=== PATIENT | male | born 1945 | race Caucasian/White ===

== ENCOUNTER 2020-05-23 21:41 | Inpatient (IN) | payer BC, OTHER ==
[~2020-05-23] VITALS: Ht 157.5 cm; Wt 78.9 kg
[2020-05-23] MEDS ORDERED: BLOOD SUGAR DIAGNOSTIC 1 EACH STRIP IN ONE (22:30)
[2020-05-23] MEDS ORDERED: MAG HYDROX/AL HYDROX/SIMETH 30 ML UDC PO PRN (22:30)
[2020-05-23] MEDS ORDERED: MAGNESIUM HYDROXIDE 30 ML UDC PO PRN (22:30)
[2020-05-23] MEDS ORDERED: RISP3TAB5 PO (23:13)
[2020-05-23] MEDS ORDERED: ASPI-1169 PO (23:13)
[2020-05-23] MEDS ORDERED: DIVA500T4 PO (23:13)
[2020-05-23] MEDS ORDERED: TAMS-12 PO (23:13)
[2020-05-23] MEDS ORDERED: ATOR40TA PO (23:13)
[2020-05-23] MEDS ORDERED: ALLO100T PO (23:13)
[2020-05-23] MEDS ORDERED: AMLO-213 PO (23:13)
[2020-05-23 23:18] VITALS: BP 145/68
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
[2020-05-24 08:00] VITALS: BP 131/75
[2020-05-24] MEDS ORDERED: PNEUMOCOCCAL 23-VAL P-SAC VAC 0.5 ML VIAL SQ ONE (08:00)
[2020-05-24 08:12] LABS: ALANINE AMINOTRANSFERASE 29 U/L (12-78); ALBUMIN 3.3 g/dL (3.4-5.0); ALKALINE PHOSPHATASE 55 U/L (46-116); ASPARTATE AMINOTRANSFERASE 23 U/L (15-37); BILIRUBIN,TOTAL 0.2 mg/dL (0.2-1.0); CALCIUM, SERUM 8.8 mg/dL (8.5-10.1); CARBON DIOXIDE 24 mmol/L (21-32); CHLORIDE 106 mmol/L (98-107); CHOLESTEROL 169 mg/dL (<200); CREATININE 1.9 mg/dL (0.6-1.3); GLUCOSE 104 mg/dL (74-106); HDL CHOLESTEROL 51 mg/dL (40-60); LDL 95 mg/dL (0-99); POTASSIUM 4.6 mmol/L (3.5-5.1); SODIUM SERUM 142 mmol/L (136-145); TOTAL PROTEIN, SERUM 7.2 g/dL (6.4-8.2); TRIGLYCERIDES 97 mg/dL (30-150); UREA NITROGEN, BLOOD 36 mg/dL (7-18)
[2020-05-24] MEDS: AMLODIPINE BESYLATE 10 MG TABLET PO SCH (08:38)
[2020-05-24] MEDS: ALLOPURINOL 100 MG TABLET PO SCH (08:38)
[2020-05-24] MEDS: ASPIRIN 81 MG TAB.CHEW PO SCH (08:38)
--- NOTE | 2020-05-24 09:00 | NUR ---
RN NOTE- PT ALERT ORIENTED TO PERSON PLACE TIME PURPOSE, DENIES ALL MED COMPLIANT INTERACTIVE PO INTAKE GOOD
[2020-05-24] MEDS ORDERED: LORAZEPAM 0.5 MG TABLET PO PRN (11:00)
[2020-05-24] MEDS ORDERED: TEMAZEPAM 7.5 MG CAPSULE PO PRN (11:00)
--- NOTE | 2020-05-24 11:10 | NUR ---
CLARE Family Contact: CLARE spoke with patient's , Angie ([phone]) and discussed treatment and discharge plan. Angie stated she will pick up attendant the patient at the time of discharge and take him back home.
--- NOTE | 2020-05-24 11:21 | NUR ---
CLARE Initial Discharge Plan: Patient currently resides at [place] [address] [place] [address] with his Angie ([phone]). Patient would like to return home upon discharge. Patient's , Angie would also like patient to return home. CLARE will continue to work with patient, family, and MD to ensure a safe and proper discharge plan.
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
--- NOTE | 2020-05-24 13:46 | NUR ---
SW Family Contact: Patient's , Angie ([phone]) faxed this foster care social worker the DPOA documents and a copy has been placed in the patient's chart.
--- NOTE | 2020-05-24 14:36 | NUR ---
UR NOTE: AUTHORIZATION# [id number] OBTAINED FROM JAYLEN WITH [facility] @ [phone]. 2 DAYS APPROVED. PLEASE FAX CLINICAL TO FAX# [phone] FOR MORE DAYS WITHIN 24 TO 48 HOURS. CALL REF# [id number]
[2020-05-24 16:00] VITALS: BP 151/77
[2020-05-24] MEDS: ATORVASTATIN 40 MG TABLET PO SCH (17:31)
[2020-05-24] MEDS: TAMSULOSIN 0.4 MG CAP.SR.24H PO SCH (17:31)
[2020-05-24 21:21] VITALS: BP 102/75
[2020-05-24] MEDS: risperiDONE 1 MG TABLET PO SCH (22:19)
[2020-05-24] MEDS: DIVALPROEX SODIUM 500 MG TABLET.DR PO SCH (22:19)
[2020-05-25 07:44] LABS: BASOPHILS # (AUTO) 0.1 /CMM (0.0-0.2); BASOPHILS % (AUTO) 1.3 % (0.0-2.0); EOSINOPHILS % (AUTO) 16.7 % (0.0-6.0); HEMATOCRIT 23 % (39-51); HEMOGLOBIN 7.9 g/dL (13.5-17.5); LYMPHOCYTES # (AUTO) 0.8 /CMM (0.8-4.8); LYMPHOCYTES % (AUTO) 17.3 % (20.0-44.0); MEAN CORPUSCULAR HGB CONC 34 g/dl (31.0-36.0); MEAN CORPUSCULAR VOLUME 98 fL (80-96); MONOCYTES # (AUTO) 0.6 /CMM (0.1-1.30); MONOCYTES % (AUTO) 12.2 % (2.0-12.0); NEUTROPHILS # (AUTO) 2.4 /CMM (1.8-8.9); NEUTROPHILS % (AUTO) 52.5 % (43.0-81.0); PLATELET COUNT (AUTO) 232 /CMM (150-450); RED BLOOD CELL COUNT(AUTO) 2.39 MIL/uL (4.5-6.0); WHITE BLOOD COUNT (AUTO) 4.6 K/uL (4.3-11.0)
[2020-05-25 08:00] VITALS: BP 141/81
[2020-05-25 08:06] LABS: MAGNESIUM 2.1 mg/dL (1.8-2.4); PHOSPHORUS 3.6 mg/dL (2.5-4.9)
[2020-05-25] MEDS: ASPIRIN 81 MG TAB.CHEW PO SCH (08:27)
[2020-05-25] MEDS: ALLOPURINOL 100 MG TABLET PO SCH (08:28)
[2020-05-25] MEDS: AMLODIPINE BESYLATE 10 MG TABLET PO SCH (08:28)
--- NOTE | 2020-05-25 11:33 | NUR ---
UR NOTE: This SW contacted Vijay with [employer] [facility] at ([phone]) and faxed clinical to ([phone]) for clinical review.
--- NOTE | 2020-05-25 13:21 | NUR ---
UR NOTE: This SW contacted Vijay with [employer] [facility] at ([phone]) and faxed clinical to ([phone]) stated patient is authorized until 05/27/20 and will require clinical review on 05/27/20. Auth #[id number]
--- NOTE | 2020-05-25 13:23 | NUR ---
UR NOTE: Vijay with [facility] at ([phone]) and faxed clinical to ([phone]) contacted this global technical writer requesting medicare letter from Intake and if Intake can fax it to him. This global technical writer notified Jd from Intake. Auth #[id number]
--- NOTE | 2020-05-25 15:09 | NUR ---
Medicare Rights Letter: This radio news writer had pt sign Medicare Rights letter and placed it in patient's chart. This radio news writer also faxed it to Jd Intake and insurance correctional case records supervisor Vijay ([phone]) ([phone]).
--- NOTE | 2020-05-25 15:09 | NUR ---
UR NOTE: Vijay with [employer] [facility] at ([phone]) and faxed clinical to ([phone]) and faxed patient's Medicare Rights Letter. Auth #[id number]
--- NOTE | 2020-05-25 15:27 | NUR ---
[facility] Boom Supervisor: This law writer received a phone call from [place]av[place] child support case officer from [facility] who follows pt ([phone]) and would want to know when pt will be discharged.
[2020-05-25 16:00] VITALS: BP 146/69
[2020-05-25] MEDS: TAMSULOSIN 0.4 MG CAP.SR.24H PO SCH (17:19)
[2020-05-25] MEDS: ATORVASTATIN 40 MG TABLET PO SCH (17:19)
--- NOTE | 2020-05-25 19:30 | NUR ---
GPS RN NOTE, RECEIVED PATIENT AWAKE AND IN BED, NO S/S OR COMPLAINTS OF PAIN AT THIS TIME. PATIENT IS DISPLAYING NO S/S OF APPARENT DISTRESS AT THIS TIME. PATIENT BREATHING IS UNLABORED WITH EQUAL RISE AND FALL OF THE CHEST. PATIENT IS ALERT AND ORIENTED X 3 ON ROOM AIR WITH A SPO2 96%. PATIENT IS COMPLIANT WITH MEDICATIONS, HYPERVERBAL, ANXIOUS AT TIMES, AND COOPERATIVE. PATIENT DENIES SUICIDAL AND HOMICIDAL IDEATIONS AT THIS TIME. PATIENT ASSISTED WITH TURNING AND REPOSITIONING Q2HR AND PRN FOR COMFORT AND CIRCULATION. PATIENT HAS NO NEEDS AT THIS TIME. PATIENT EDUCATED ON THE USE OF THE CALL ORTIZ. PATIENT BED SIDE RAILS UP X 2 FOR SAFETY. PATIENT BED IS LOCKED, LOW, WITH BED ALARM ON. WILL CONTINUE TO MONITOR THIS PATIENT Q15 MINUTES WITH THE HELP OF STAFF TO MAINTAIN SAFETY.
[2020-05-25 19:52] VITALS: BP 147/79
[2020-05-25] MEDS: risperiDONE 1 MG TABLET PO SCH (21:32)
[2020-05-25] MEDS: DIVALPROEX SODIUM 500 MG TABLET.DR PO SCH (21:32)
[2020-05-26 08:00] VITALS: BP 155/68
[2020-05-26 08:07] LABS: PTH, INTACT 23 pg/mL (15-65)
[2020-05-26 08:15] LABS: BASOPHILS % (AUTO) 0.8 % (0.0-2.0); EOSINOPHILS % (AUTO) 13.2 % (0.0-6.0); HEMATOCRIT 25 % (39-51); HEMOGLOBIN 8.6 g/dL (13.5-17.5); LYMPHOCYTES # (AUTO) 0.8 /CMM (0.8-4.8); LYMPHOCYTES % (AUTO) 13.3 % (20.0-44.0); MEAN CORPUSCULAR HGB CONC 34 g/dl (31.0-36.0); MEAN CORPUSCULAR VOLUME 98 fL (80-96); MONOCYTES # (AUTO) 0.6 /CMM (0.1-1.30); MONOCYTES % (AUTO) 10.2 % (2.0-12.0); NEUTROPHILS # (AUTO) 3.5 /CMM (1.8-8.9); NEUTROPHILS % (AUTO) 62.5 % (43.0-81.0); PLATELET COUNT (AUTO) 257 /CMM (150-450); RED BLOOD CELL COUNT(AUTO) 2.59 MIL/uL (4.5-6.0); WHITE BLOOD COUNT (AUTO) 5.6 K/uL (4.3-11.0)
[2020-05-26] MEDS: AMLODIPINE BESYLATE 10 MG TABLET PO SCH (08:18)
[2020-05-26] MEDS: ALLOPURINOL 100 MG TABLET PO SCH (08:18)
[2020-05-26] MEDS: ASPIRIN 81 MG TAB.CHEW PO SCH (08:18)
[2020-05-26] MEDS: DIVALPROEX SODIUM 500 MG TABLET.DR PO SCH ×2 (08:37→17:09)
[2020-05-26 08:43] LABS: ALANINE AMINOTRANSFERASE 26 U/L (12-78); ALBUMIN 3.1 g/dL (3.4-5.0); ALKALINE PHOSPHATASE 52 U/L (46-116); ASPARTATE AMINOTRANSFERASE 23 U/L (15-37); BILIRUBIN,TOTAL 0.3 mg/dL (0.2-1.0); CALCIUM, SERUM 8.6 mg/dL (8.5-10.1); CARBON DIOXIDE 24 mmol/L (21-32); CHLORIDE 105 mmol/L (98-107); CREATININE 1.8 mg/dL (0.6-1.3); GLUCOSE 113 mg/dL (74-106); MAGNESIUM 2.1 mg/dL (1.8-2.4); PHOSPHORUS 3.6 mg/dL (2.5-4.9); POTASSIUM 4.8 mmol/L (3.5-5.1); SODIUM SERUM 140 mmol/L (136-145); TOTAL PROTEIN, SERUM 6.7 g/dL (6.4-8.2); UREA NITROGEN, BLOOD 39 mg/dL (7-18)
[2020-05-26 08:46] LABS: IRON, SERUM 59 ug/dl (50-175); TOTAL IRON BINDING CAPACITY 256 ug/dl (250-450)
[2020-05-26 10:05] LABS: CREATINE KINASE, TOTAL 354 U/L (39-308); FERRITIN 377 ng/mL (8-388)
--- NOTE | 2020-05-26 13:33 | NUR ---
SW Coordination of Care: This SW contacted primary doctors office Dr. Eric Jackson [address], [place] [address] ([phone]) on June 07 at 11:30AM. Eddie scheduled apt.
--- NOTE | 2020-05-26 15:07 | NUR ---
RN-CO: ENCOURAGE FLUID INTAKE TO PATIENT. TRIED TO COLLECT STOOL SPECIMEN BUT PT SAID NO URGE TO DEFECATE YET. SPECIMEN BOTTLE, HAT PROVIDED.
[2020-05-26 15:11] LABS: *SPE ALBUMIN 2.7 g/dL (2.9-4.4); *SPE ALPHA-1-GLOBULIN 0.2 g/dL (0.0-0.4); *SPE ALPHA-2-GLOBULIN 0.7 g/dL (0.4-1.0); *SPE BETA GLOBULIN 0.9 g/dL (0.7-1.3); *SPE GLOBULIN, TOTAL 2.8 g/dL (2.2-3.9); *SPE M-SPIKE Not Observed g/dL (Not Observed); *SPEGAMMA GLOBULIN 0.9 g/dL (0.4-1.8)
[2020-05-26 16:00] VITALS: BP 119/57
[2020-05-26] MEDS: ATORVASTATIN 40 MG TABLET PO SCH (17:09)
[2020-05-26] MEDS: TAMSULOSIN 0.4 MG CAP.SR.24H PO SCH (17:09)
[2020-05-26 19:53] VITALS: BP 140/59
[2020-05-26] MEDS: risperiDONE 1 MG TABLET PO SCH (21:09)
--- NOTE | 2020-05-27 03:09 | NUR ---
GPS RN NOTE, PATIENT HAS A COMPLAINT OF CONSTIPATION AND IS REQUESTING MILK OF MAGNESIA AT THIS TIME. PATIENT VITAL SIGNS ARE STABLE. GAVE MILK OF MAGNESIA 30ML 1 UNIT DOSE Q12HR PRN ORDERED. WILL REASSESS FOR CONSTIPATION AND I WILL CONTINUE TO MONITOR THIS PATIENT.
[2020-05-27 07:40] VITALS: BP 132/71
[2020-05-27 08:00] LABS: CREATININE, URINE 39.2 MG/DL (30.0-125.0); URINE TOTAL PROTEIN 55.1 mg/dL (0-11.9)
[2020-05-27] MEDS: AMLODIPINE BESYLATE 10 MG TABLET PO SCH (08:01)
[2020-05-27] MEDS: ALLOPURINOL 100 MG TABLET PO SCH (08:01)
[2020-05-27] MEDS: DIVALPROEX SODIUM 500 MG TABLET.DR PO SCH ×2 (08:01→17:33)
[2020-05-27] MEDS: ASPIRIN 81 MG TAB.CHEW PO SCH (08:01)
[2020-05-27 08:06] LABS: CREATININE KINASE (CK),MB 3.7 ng/mL (0.0-10.4)
[2020-05-27 08:20] LABS: BILIRUBIN,URINE NEGATIVE (NEGATIVE); BLOOD, URINE NEGATIVE Ery/uL (NEGATIVE); COLOR,URINE YELLOW (YELLOW); LEUKOCYTE ESTERASE ,URINE NEGATIVE (NEGATIVE); NITRITE, URINE NEGATIVE (NEGATIVE); PROTEIN,URINE 30 mg/dl (NEGATIVE); UGLUCOSE NEGATIVE (NEGATIVE); UROBILINOGEN,URINE 0.2 EU/dL (0.2)
--- NOTE | 2020-05-27 08:37 | NUR ---
UR NOTE: Vijay Sandra [facility] at ([phone]) and faxed clinical to ([phone]) sent clinical review and requested more days.
[2020-05-27 08:46] LABS: BACTERIA,URINE Rare /HPF (None Seen); RBC,URINE 0-2 /HPF (0-2); SQUAMOUS EPITHELIAL CELL,UR None Seen /HPF (None Seen); WBC,URINE 0-2 /HPF (0-3)
[2020-05-27 09:11] LABS: PTH, INTACT 45 pg/mL (15-65)
[2020-05-27 10:14] LABS: OCCULT BLOOD STOOL NEGATIVE (NEGATIVE)
--- NOTE | 2020-05-27 10:44 | NUR ---
UR NOTE: Vijay with [employer] [facility] at ([phone]) and faxed clinical to ([phone]) will require to fax clinicals on 05/30/2020.
[2020-05-27 12:06] LABS: EOSINOPHIL,URINE None Seen
[2020-05-27 16:07] VITALS: BP 143/72
[2020-05-27] MEDS: ATORVASTATIN 40 MG TABLET PO SCH (17:33)
[2020-05-27] MEDS: TAMSULOSIN 0.4 MG CAP.SR.24H PO SCH (17:33)
--- NOTE | 2020-05-27 19:30 | NUR ---
GPS RN NOTE, RECEIVED PATIENT AWAKE AND IN BED, NO S/S OR COMPLAINTS OF PAIN AT THIS TIME. PATIENT IS DISPLAYING NO S/S OF APPARENT DISTRESS AT THIS TIME. PATIENT BREATHING IS UNLABORED WITH EQUAL RISE AND FALL OF THE CHEST. PATIENT IS ALERT AND ORIENTED X 3 ON ROOM AIR WITH A SPO2 98%. PATIENT IS COMPLIANT WITH MEDICATIONS, HYPERVERBAL, ANXIOUS AT TIMES, AND COOPERATIVE. PATIENT DENIES SUICIDAL AND HOMICIDAL IDEATIONS AT THIS TIME. PATIENT ASSISTED WITH TURNING AND REPOSITIONING Q2HR AND PRN FOR COMFORT AND CIRCULATION. PATIENT HAS NO NEEDS AT THIS TIME. PATIENT EDUCATED ON THE USE OF THE CALL ORTIZ. PATIENT BED SIDE RAILS UP X 2 FOR SAFETY. PATIENT BED IS LOCKED, LOW, WITH BED ALARM ON. WILL CONTINUE TO MONITOR THIS PATIENT Q15 MINUTES WITH THE HELP OF STAFF TO MAINTAIN SAFETY.
[2020-05-27 19:35] VITALS: BP 154/76
[2020-05-27] MEDS: risperiDONE 1 MG TABLET PO SCH (21:24)
[2020-05-28] MEDS: ACETAMINOPHEN 325 MG TABLET PO PRN (04:07)
--- NOTE | 2020-05-28 04:07 | NUR ---
GPS RN NOTE, PATIENT HAS A COMPLAINT OF CHRONIC RIGHT KNEE PAIN AT 3 OUT OF 10 ON THE PAIN SCALE AND IS REQUESTING TYLENOL AT THIS TIME. PATIENT VITAL SIGNS ARE STABLE. GAVE TYLENOL 650 MG PO Q6HR PRN ORDERED. WILL REASSESS PAIN AND I WILL CONTINUE TO MONITOR THIS PATIENT.
[2020-05-28 07:50] VITALS: BP 142/70
[2020-05-28] MEDS: AMLODIPINE BESYLATE 10 MG TABLET PO SCH (08:19)
[2020-05-28] MEDS: ALLOPURINOL 100 MG TABLET PO SCH (08:19)
[2020-05-28] MEDS: DIVALPROEX SODIUM 500 MG TABLET.DR PO SCH ×2 (08:19→17:03)
[2020-05-28] MEDS: ASPIRIN 81 MG TAB.CHEW PO SCH (08:19)
[2020-05-28 15:58] VITALS: BP 147/80
[2020-05-28] MEDS: TAMSULOSIN 0.4 MG CAP.SR.24H PO SCH (17:03)
[2020-05-28] MEDS: ATORVASTATIN 40 MG TABLET PO SCH (17:03)
[2020-05-28 19:54] VITALS: BP 148/77
--- NOTE | 2020-05-28 21:00 | NUR ---
GPS RN NOTES: PATIENT REQUESTED MEDICATION FOR STUFFY NOSE. MESSAGED HARSHAL WADDELL NP FOR [employer]. SHE GAVE ORDERS FOR MUCINEX. ADMINSITERED TO PATIENT AND HE THEN VERBALIZED RELIEF. WILL CONTINUE TO MONITOR PATIENT.
[2020-05-28] MEDS: risperiDONE 1 MG TABLET PO SCH (21:51)
[2020-05-28] MEDS: GUAIFENESIN LA 600 MG TABLET.SA PO PRN (23:27)
[2020-05-29 08:00] VITALS: BP 149/74
[2020-05-29 08:18] LABS: BASOPHILS # (AUTO) 0.1 /CMM (0.0-0.2); EOSINOPHILS % (AUTO) 14.4 % (0.0-6.0); HEMATOCRIT 26 % (39-51); HEMOGLOBIN 8.8 g/dL (13.5-17.5); LYMPHOCYTES # (AUTO) 0.7 /CMM (0.8-4.8); LYMPHOCYTES % (AUTO) 14.4 % (20.0-44.0); MEAN CORPUSCULAR HGB CONC 34 g/dl (31.0-36.0); MEAN CORPUSCULAR VOLUME 98 fL (80-96); MONOCYTES # (AUTO) 0.6 /CMM (0.1-1.30); MONOCYTES % (AUTO) 11.2 % (2.0-12.0); PLATELET COUNT (AUTO) 273 /CMM (150-450); RED BLOOD CELL COUNT(AUTO) 2.63 MIL/uL (4.5-6.0); WHITE BLOOD COUNT (AUTO) 5.1 K/uL (4.3-11.0)
[2020-05-29] MEDS: DIVALPROEX SODIUM 500 MG TABLET.DR PO SCH ×2 (09:06→17:32)
[2020-05-29] MEDS: AMLODIPINE BESYLATE 10 MG TABLET PO SCH (09:06)
[2020-05-29] MEDS: ASPIRIN 81 MG TAB.CHEW PO SCH (09:06)
[2020-05-29] MEDS: ALLOPURINOL 100 MG TABLET PO SCH (09:07)
[2020-05-29 09:52] LABS: ALANINE AMINOTRANSFERASE 30 U/L (12-78); ALBUMIN 3.3 g/dL (3.4-5.0); ALKALINE PHOSPHATASE 53 U/L (46-116); ASPARTATE AMINOTRANSFERASE 21 U/L (15-37); BILIRUBIN,TOTAL 0.2 mg/dL (0.2-1.0); CALCIUM, SERUM 8.5 mg/dL (8.5-10.1); CARBON DIOXIDE 26 mmol/L (21-32); CHLORIDE 98 mmol/L (98-107); CREATININE 1.8 mg/dL (0.6-1.3); GLUCOSE 94 mg/dL (74-106); MAGNESIUM 2.3 mg/dL (1.8-2.4); PHOSPHORUS 3.7 mg/dL (2.5-4.9); POTASSIUM 4.5 mmol/L (3.5-5.1); SODIUM SERUM 133 mmol/L (136-145); TOTAL PROTEIN, SERUM 6.9 g/dL (6.4-8.2); UREA NITROGEN, BLOOD 38 mg/dL (7-18)
[2020-05-29] MEDS: DIVALPROEX SODIUM 250 MG TABLET.DR PO SCH (14:02)
[2020-05-29] MEDS: ACETAMINOPHEN 325 MG TABLET PO PRN (15:50)
--- NOTE | 2020-05-29 15:51 | NUR ---
RN NOTE:PATIENT C/O HEADACHE 12/24 MEDICATED WITH TYLENOL 650MG WILL CONTINUE TO MONITOR .
[2020-05-29 16:00] VITALS: BP 157/80
[2020-05-29] MEDS: TAMSULOSIN 0.4 MG CAP.SR.24H PO SCH (17:32)
[2020-05-29] MEDS: ATORVASTATIN 40 MG TABLET PO SCH (17:32)
[2020-05-29] MEDS: GUAIFENESIN LA 600 MG TABLET.SA PO PRN (18:02)
[2020-05-29 20:37] VITALS: BP 146/76
[2020-05-29] MEDS: risperiDONE 1 MG TABLET PO SCH (21:19)
[2020-05-30 08:00] VITALS: BP 148/65
[2020-05-30] MEDS: DIVALPROEX SODIUM 500 MG TABLET.DR PO SCH ×2 (08:44→17:41)
[2020-05-30] MEDS: ASPIRIN 81 MG TAB.CHEW PO SCH (08:45)
[2020-05-30] MEDS: AMLODIPINE BESYLATE 10 MG TABLET PO SCH (08:45)
[2020-05-30] MEDS: ALLOPURINOL 100 MG TABLET PO SCH (08:45)
[2020-05-30 09:28] LABS: ALANINE AMINOTRANSFERASE 30 U/L (12-78); ALBUMIN 3.4 g/dL (3.4-5.0); ALKALINE PHOSPHATASE 54 U/L (46-116); ASPARTATE AMINOTRANSFERASE 22 U/L (15-37); BILIRUBIN,TOTAL 0.2 mg/dL (0.2-1.0); CALCIUM, SERUM 8.6 mg/dL (8.5-10.1); CARBON DIOXIDE 27 mmol/L (21-32); CHLORIDE 104 mmol/L (98-107); CREATININE 1.8 mg/dL (0.6-1.3); GLUCOSE 117 mg/dL (74-106); POTASSIUM 4.4 mmol/L (3.5-5.1); SODIUM SERUM 141 mmol/L (136-145); TOTAL PROTEIN, SERUM 7.1 g/dL (6.4-8.2); UREA NITROGEN, BLOOD 34 mg/dL (7-18)
[2020-05-30 09:40] LABS: VALPROIC ACID 55 ug/mL (50-100)
[2020-05-30] MEDS: risperiDONE 1 MG TABLET PO SCH ×2 (10:50→17:39)
--- NOTE | 2020-05-30 11:33 | NUR ---
CLARE Family Contact: CLARE called the patient's , Angie ([phone]), and informed her that the pt does not have a hearing today and that the SW will be requesting additional days in the hospital from the insurance company.
--- NOTE | 2020-05-30 11:48 | NUR ---
UR NOTE: CLARE faxed a clinical to Vijay with [employer] [facility] at ([phone]) to the fax number [phone]) to request additional days.
[2020-05-30] MEDS: DIVALPROEX SODIUM 250 MG TABLET.DR PO SCH (14:06)
[2020-05-30 14:08] LABS: *SPE ALBUMIN 3.1 g/dL (2.9-4.4); *SPE ALPHA-1-GLOBULIN 0.2 g/dL (0.0-0.4); *SPE ALPHA-2-GLOBULIN 0.8 g/dL (0.4-1.0); *SPE BETA GLOBULIN 0.9 g/dL (0.7-1.3); *SPE M-SPIKE Not Observed g/dL (Not Observed)
[2020-05-30 16:00] VITALS: BP 122/60
[2020-05-30] MEDS: ATORVASTATIN 40 MG TABLET PO SCH (18:12)
[2020-05-30] MEDS: TAMSULOSIN 0.4 MG CAP.SR.24H PO SCH (18:12)
[2020-05-30 19:54] VITALS: BP 128/58
[2020-05-31 08:00] VITALS: BP 141/69
[2020-05-31] MEDS: ALLOPURINOL 100 MG TABLET PO SCH (08:30)
[2020-05-31] MEDS: risperiDONE 1 MG TABLET PO SCH ×2 (08:30→17:06)
[2020-05-31] MEDS: ASPIRIN 81 MG TAB.CHEW PO SCH (08:30)
[2020-05-31] MEDS: AMLODIPINE BESYLATE 10 MG TABLET PO SCH (08:31)
[2020-05-31] MEDS: DIVALPROEX SODIUM 500 MG TABLET.DR PO SCH ×2 (08:31→17:08)
--- NOTE | 2020-05-31 09:54 | NUR ---
UR NOTE: CLARE called Vijay with [employer] [facility] at ([phone]) and left a voicemail inquiring about the pts authorization.
--- NOTE | 2020-05-31 10:19 | NUR ---
CLARE Family Contact: CLARE called the patient's , Angie ([phone]), and informed her that the pt does not have his PC hearing today. She stated that the pt has been adamant about leaving soon and stated that she is nervous because she wants him to be stable on his medications. CLARE stated that she will inform her when the pt is ready to be discharged and that she will work with the pt on accepting and understanding his hospital stay.
--- NOTE | 2020-05-31 11:10 | NUR ---
UR NOTE: CLARE called Vijay with [employer] [facility] at ([phone]) and he stated that the pt is authorized until 05/31/20 and asked for a review to be faxed once again.
--- NOTE | 2020-05-31 11:12 | NUR ---
UR NOTE: CLARE faxed a clinical to Vijay with [employer] [facility] at ([phone]) to the fax number ([phone]) to request additional days.
--- NOTE | 2020-05-31 12:43 | NUR ---
Individual Intervention: SW attempted to speak to the pt and inform him that he will be discharged sometime later in the week and the pt expressed his anger and stated that he wanted to return to his home as soon as possible. Pt refused to talk to the SW when she stated that she does not have a date at this time.
[2020-05-31] MEDS: DIVALPROEX SODIUM 250 MG TABLET.DR PO SCH (13:38)
[2020-05-31 16:00] VITALS: BP 133/61
[2020-05-31] MEDS: ATORVASTATIN 40 MG TABLET PO SCH (17:06)
[2020-05-31] MEDS: TAMSULOSIN 0.4 MG CAP.SR.24H PO SCH (17:06)
[2020-05-31 19:49] VITALS: BP 120/66
--- NOTE | 2020-05-31 19:58 | NUR ---
GPS RN NOTE: RECEIVED PT IN ROOM RESTING, A/O X3, PT DENIES SI/HI, DENIES PAIN, DENIES AVH, PT IS CALM, COOPERATIVE, OPTIMISTIC ABOUT FUTURE D/C STATES HE IS FEELING A LOT BETTER AND HOPES TO KEEP IMPROVING. VSS AT THIS TIME, NO DISTRESS NOTED, WILL CONTINUE TO MONITOR Q15MIN FOR SAFETY AND BEHAVIOR
[2020-06-01 08:00] VITALS: BP 155/78
[2020-06-01] MEDS: risperiDONE 1 MG TABLET PO SCH ×2 (08:18→16:34)
[2020-06-01] MEDS: ALLOPURINOL 100 MG TABLET PO SCH (08:18)
[2020-06-01] MEDS: ASPIRIN 81 MG TAB.CHEW PO SCH (08:18)
[2020-06-01] MEDS: DIVALPROEX SODIUM 500 MG TABLET.DR PO SCH ×2 (08:19→16:34)
[2020-06-01] MEDS: AMLODIPINE BESYLATE 10 MG TABLET PO SCH (08:19)
--- NOTE | 2020-06-01 11:30 | NUR ---
CLARE Family Contact: CLARE called the patient's , Angie ([phone]), and informed her that the pt is being discharged today and she stated that she will come around 8-8:30pm. CLARE stated that she will arrange the discharge for that time.
--- NOTE | 2020-06-01 11:48 | NUR ---
Discharge Note: Patient will return to his home located at [address] [place] [address]. Patients , Angie ([phone]) is involved and will pick him up at discharge and take him home around 8-8:30pm. Upon discharge, the pt appears to be in a euthymic mood and presents with a distressed affect. Pt appears to be alert and oriented x3. Pt denies suicidal and homicidal ideation as well as auditory and visual hallucinations. Pt appears to be well groomed and appropriately dressed. Pt was referred to [facility] located at [address] [place] [phone] ([phone]). Pt will also be under the care of his outreach educator, Dr. Eric Jackson, [facility] [address] [facility] [place] [address] ([phone]) and has an appointment on June 07 at 11:30AM. The multidisciplinary exit care form was done, printed, signed, and given to the patient.
[2020-06-01] MEDS: DIVALPROEX SODIUM 250 MG TABLET.DR PO SCH (12:02)
--- NOTE | 2020-06-01 12:53 | NUR ---
CLARE Family Contact: CLARE called the patient's , Angie ([phone]), and informed her that we do not conduct covid tests when pts are discharged back home and recommended that they take the pt to a testing center if they have any concerns.
--- NOTE | 2020-06-01 13:47 | NUR ---
UR NOTE: CLARE called Vijay with [employer] at ([phone]) and left a discharge clinical on his voicemail.
--- NOTE | 2020-06-01 15:51 | NUR ---
RN NOTE- DC COMPLETED. PSYCHE AND MEDICAL RX CALLED INTO [facility] [phone] AT 1404. FAMILY TO P/U AFTER 1930. HOUSE SUP CONTACTED AND VALUABLES RETRIEVED FROM [facility]
[2020-06-01 16:00] VITALS: BP 156/80
[2020-06-01] MEDS: ATORVASTATIN 40 MG TABLET PO SCH (17:50)
[2020-06-01] MEDS: TAMSULOSIN 0.4 MG CAP.SR.24H PO SCH (17:50)
[2020-06-01 19:47] VITALS: BP 141/68
--- NOTE | 2020-06-01 20:57 | NUR ---
GPS-RN: DISCHARGE NOTE PATIENT WAS DISCHARGED TO HOME ACCOMPANIED BY [facility]. PT IS COMPLIANT WITH MEDICATIONS, COOPERATIVE WITH TREATMENT PLANS. PATIENT DENIES SI/HI AND INSTRUCTED TO GO TO THE CLOSEST ER IF DEVELOPING SI/HI. EDUCATED PATIENT ABOUT AFTER CARE (EXIT-CARE) AND COPY PROVIDED. RETURNED PERSONAL BELONGINGS TO PATIENT. PATIENT LEFT THE UNIT AT 2054.
--- NOTE | 2020-06-02 09:03 | NUR ---
UR NOTE: CLARE faxed a discharge clinical to Vijay with [facility] at ([phone]) to the fax number ([phone]).
== END 2020-06-01 21:04 | disposition home or self-care (01) | DRG 885 ==
LOC: GPS 21:41
PROVIDERS: ADMIT Psychiatry & Neurology Psychiatry; ATTEND Internal Medicine
DX: F31.2 Bipolar disorder, current episode manic severe with psychotic features (principal); E43 Unspecified severe protein-calorie malnutrition; N17.9 Acute kidney failure, unspecified; N18.9 Chronic kidney disease, unspecified; F23 Brief psychotic disorder; F29 Unspecified psychosis not due to a substance or known physiological condition; F41.9 Anxiety disorder, unspecified; I25.10 Atherosclerotic heart disease of native coronary artery without angina pectoris; E78.5 Hyperlipidemia, unspecified; I12.9 Hypertensive chronic kidney disease with stage 1 through stage 4 chronic kidney disease, or unspecified chronic kidney disease; M10.9 Gout, unspecified; Z73.6 Limitation of activities due to disability; M62.81 Muscle weakness (generalized); F39 Unspecified mood [affective] disorder; F12.10 Cannabis abuse, uncomplicated; F10.10 Alcohol abuse, uncomplicated; Z68.31 Body mass index [BMI] 31.0-31.9, adult; D63.1 Anemia in chronic kidney disease; N40.0 Benign prostatic hyperplasia without lower urinary tract symptoms; E88.09 Other disorders of plasma-protein metabolism, not elsewhere classified
CPT/HCPCS: 36415; 76770-TC; 80053-TC; 80061-TC; 80164-TC; 81001; 82272-TC; 82550-TC; 82553; 82570-TC; 82728-TC; 82962-TC; 83540-TC; 83735-TC; 83970; 84100-TC; 84155; 84155-TC; 84165; 84300-TC; 85025-TC; 87081-TC; 90732; 97112-TC; 97116-TC; 97530-TC